=== PATIENT | female | born 1975 | race African-American/Black ===

== ENCOUNTER 2021-09-22 07:41 | Emergency (ER) | payer OTHER ==
[2021-09-22 08:23] VITALS: BP 120/86; PULSE 117; TEMP 98.1; BMI 35.4
[2021-09-22] MEDS ORDERED: KETOROLAC TROMETHAMINE 30 MG/1 ML VIAL IM ONE (08:45)
[2021-09-22] MEDS ORDERED: LIDOCAINE 5% TOPICAL PATCH TP ONE (08:45)
[2021-09-22] MEDS ORDERED: LIDOCAINE 5% TOPICAL PATCH ONE (08:58)
[2021-09-22] MEDS ORDERED: LIDOCAINE PATCH REMOVAL MC SCH (22:00)
== END 2021-09-22 09:20 | disposition home or self-care (01) ==
LOC: JERFT 07:41 → JER 07:41 → JERFT 09:20
PROC: 3E0233Z Introduction of Anti-inflammatory into Muscle, Percutaneous Approach (ICD-10-PCS; principal; 2021-09-22)
DX: M54.41 Lumbago with sciatica, right side (principal)
CPT/HCPCS: 99284-25